=== PATIENT | male | born 1995 | race Caucasian/White ===

== ENCOUNTER 2023-10-18 18:30 | Emergency (ER) | payer OTHER, SELFPAY ==
[2023-10-18 18:31] VITALS: BP 145/92; PULSE 72; RESP 16; TEMP 36.6; O2SAT 97; BMI 27.9
[2023-10-18] MEDS: Ketorolac 15 MG/ML Vial IM (20:09)
--- NOTE | 2023-10-18 20:24 | EX.ED.GENINJ ---
HPI <JANEL Duran - Last Filed: 10/18/23 20:31> History of Present Illness Chief Complaint: Head Injury Narrative Narrative: Patient presenting today due to pain to his head, neck, and shoulders. He reports that he was wrestling with his son yesterday for fall and when his son drove his knee into the back of patient's head/neck. He reports that his son weighs about 35 pounds. He did not lose consciousness. He reports that since then, he has had intermittent headaches that feel like a band around his head and are worse to the back of his head, he also reports pain to his neck into his shoulders. He reports that he has felt intermittently nauseous but has not had any vomiting, visual changes, or dizziness. He is not on any blood thinners. PFSH <JANEL Duran - Last Filed: 10/18/23 20:31> PFSH Medical History no medical history Home Medications promethazine 25 mg tablet 25 mg PO Q6H PRN PRN Nausea ##10 07/30/14 [Rx Last Taken Unknown] Allergy/AdvReac Type Severity Reaction Status Date / Time amoxicillin [Amoxicillin] Allergy Hives Verified 07/30/14 15:31 acetaminophen [From Vicodin] AdvReac Nausea Verified 07/30/14 15:31 hydrocodone bitartrate AdvReac Nausea Verified 07/30/14 15:31 [From Vicodin] Social History Smoking Status: Never smoker ROS <JANEL Duran - Last Filed: 10/18/23 20:31> ROS ED Constitutional Constitutional ED: Denies chills or fever(s) Cardiovascular Cardiovascular: Denies chest pain Respiratory/Chest Respiratory/Chest: Denies cough or dyspnea Gastrointestinal Gastrointestinal: Denies abdominal pain, nausea or vomiting Musculoskeletal Musculoskeletal: Reports myalgias and neck pain; Denies arthralgias or back pain Integumentary Denies rash Neurologic Neurologic: Reports headache(s); Denies dizziness, paresthesias or weakness EXAM <JANEL Duran - Last Filed: 10/18/23 20:31> Physical Exam Const Vital Signs: 10/18/23 18:31 10/18/23 19:29 Temperature 97.8 F Temperature Source Temporal Pulse Rate 72 Respiratory Rate 16 Respiratory Effort Normal Respiratory Depth Normal Respiratory Pattern Normal Blood Pressure 145/92 H Blood Pressure Mean 109 Pulse Ox 97 Oxygen Delivery Method Room Air Room Air Positive well nourished, well developed and no apparent distress General Appearance ED: well developed HEENT Reports normocephalic and head/scalp atraumatic Mouth ED: Yes moist mucous membranes normal Eyes PERRL and EOMs intact bilaterally Neck full ROM and supple General: other Bilateral paracervical tenderness, no midline cervical tenderness to palpation. Left and right trapezius tenderness to palpation. Chest Wall inspection of chest normal Resp normal respiratory effort and clear to auscultation bilaterally Cardio regular rate and regular rhythm GI soft to palpation, non-tender, non-distended and no masses Back/Spine normal ROM and normal to inspection Extremity normal to inspection and full ROM Extremity Narrative: Range of motion of the bilateral shoulders. Neuro oriented x3, CN's II-XII intact bilaterally, moves all extremities, no focal motor deficits and no sensory deficits noted Sensorium / Orientation: awake and alert Psych mental status grossly normal and thought process normal Skin no rashes or lesions noted and no wounds <Dr. Aidan Godinez DO - Last Filed: 10/18/23 23:22> Physical Exam Const Vital Signs: 10/18/23 18:31 10/18/23 19:29 Temperature 97.8 F Temperature Source Temporal Pulse Rate 72 Respiratory Rate 16 Respiratory Effort Normal Respiratory Depth Normal Respiratory Pattern Normal Blood Pressure 145/92 H Blood Pressure Mean 109 Pulse Ox 97 Oxygen Delivery Method Room Air Room Air [facility] <JANEL Duran - Last Filed: 10/18/23 20:31> [facility] Narrative Medical decision making narrative: Patient presenting today due to a head/neck injury that took place last night. He reports that he was wrestling with his son when his son fell onto the back of his head/neck with his knee. There was no loss of consciousness, I do not feel that there is indication for CT scan of patient's head. He does not have any midline cervical tenderness to indicate need for imaging. He has tenderness to the paracervical muscles and bilateral trapezius muscles. Examination consistent with muscular strain of the neck/upper back and shoulders. He has been given head injury precautions. He was given Toradol here for pain and reports improvement of his symptoms on reexamination. I did offer to give him a prescription for anti-inflammatory/muscle relaxers but patient reports that he has ibuprofen at home that he can use instead. He is to follow-up with his PCP will be discharged with stable condition. He is comfortable with plan. <Dr. Aidan Godinez, DO - Last Filed: 10/18/23 23:22> [facility] Narrative Medical decision making narrative: Patient presenting today due to a head/neck injury that took place last night. He reports that he was wrestling with his son when his son fell onto the back of his head/neck with his knee. There was no loss of consciousness, I do not feel that there is indication for CT scan of patient's head. He does not have any midline cervical tenderness to indicate need for imaging. He has tenderness to the paracervical muscles and bilateral trapezius muscles. Examination consistent with muscular strain of the neck/upper back and shoulders. He has been given head injury precautions. He was given Toradol here for pain and reports improvement of his symptoms on reexamination. I did offer to give him a prescription for anti-inflammatory/muscle relaxers but patient reports that he has ibuprofen at home that he can use instead. He is to follow-up with his PCP will be discharged with stable condition. He is comfortable with plan. 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 I perform my own [id number] evaluation. I agree with the plan of work-up. Pain upper neck trapezius after 35 pounds on jumped on him yesterday evening. No pain down the arms. No focal deficit on exam. Tenderness paracervical no midline tenderness. Patient was treated with Toradol with improving symptoms. He will continue NSAIDs at home. He is reassured. All questions were strict Discharge Plan Triage Chief Complaint: Head Injury Other Complaint: Back ED Midlevel Provider: Mallika Corbett ED Provider: Aidan Godinez Dx/Rx/DC Orders Clinical Impression: Head injury, Acute strain of neck muscle Instructions: ED Head Injury (Adult), ED Neck Sprain or Strain Prescriptions: No Action promethazine 25 MG tablet 25 mg PO Q6H PRN PRN (Reason: Nausea) Qty: 10 0RF Primary Care Provider: Care Physician,No Primary Referrals: Willie Canut MD [Non-Staff] - 3-5 Days if not improving Activity Restrictions/Additional Instructions: You can take ibuprofen and Tylenol at home as needed for your pain. Follow-up with your PCP. Disposition Disposition: Home, Self Care Discharge Date/Time: 10/18/23 20:33
--- OUTSIDE RECORDS SUMMARY | 2023-10-18 20:29 | XMS RPT_ITS | CCD ---
Author Name Unknown Address [address] [place] [address] Organization [facility] Care Team Providers Care Human Resources Advisor Name Role Phone FRAN SHERMAN Attending Unavailable FRAN SHERMAN Primary Care Unavailable FRAN SHERMAN Admitting Unavailable Pepe HIGGINS, Willie Peterson Primary Care Provider [phone] Pcp, No Primary Care Provider Unavailjoseph Quiles MD, Andres Peterson Primary Care Provider Etta HIGGINS, Andres Peterson Primary Care Provider ANDRES QUILES Primary Care Unavailable GURMEET VANEGAS Attending Unavailable ANDRES QUILES Referring Unavailable ANDRES QUILES Primary Care Unavailable GURMEET VANEGAS Referring Unavailable GURMEET VANEGAS Attending Unavailable ETTA, ANDRES Peterson Primary Care Unavailable TEREZA GRIGSBY Attending Unavailable ETTA, ANDRES Peterson Primary Care Unavailable LISBETH SWENSON Attending Unavailable ANDRES QUILES Primary Care Unavailable NAYELI DAMON Attending Unavailable ANDRES QUILES Primary Care Unavailable ANDRES QUILES Primary Care Unavailable ETTA, ANDRES Peterson Primary Care Unavailable JUNE TRUJILLO Attending Unavailable ANDRES QUILES Primary Care Unavailable LISBETH SWENSON Attending Unavailable ANDRES QUILES Primary Care Unavailable LISBETH SWENSON Attending Unavailable Allergies Allergy Classification Reported Allergen(s) Allergy Type Date of Onset Reaction(s) Facility Acetaminophen / HYDROcodone (1 source) Acetaminophen / HYDROcodone Drug Allergy 06-17-2010 [facility] Work Phone: Penicillins (antibiotic) (1 source) Amoxicillin Drug Allergy 06-24-2011 Rash [facility] Work Phone: (12 sources) Acetaminophen / HYDROcodone; Translations: [HYDROCODONE-ACETA MINOPHEN] Drug Allergy 06-17-2010 GI Upset [facility] Work Phone: (12 sources) Amoxicillin; Translations: [AMOXICILLIN] Drug Allergy 06-24-2011 Rash [facility] Work Phone: Medications Current Medications Medication Drug Class(es) Dates Sig (Normalized) Sig (Original) diazePAM 5 mg oral tablet (3 sources) Benzodiazepine Start: 03-23-2023 End: 04-01-2023 diazePAM (VALIUM) 5 mg tablet Indications: anxiety , sedation Take 1 tablet by mouth on the day of surgery upon [facility]. Take second tablet 30 minutes later if needed. 2 tablet 0 03/23/2023 04/01/2023 Active Completed/Discontinued Medications Medication Drug Class(es) Dates Sig (Normalized) Sig (Original) carboxymethylcellulose sodium 5 mg/ml ophthalmic solution (4 sources) Start: 03-31-20 carboxymethylcellulose (REFRESH PLUS) 0.5 % Use 1 Drop in both eyes as needed. USE DIRECTED 1 Packet 0 03/31/2023 Active Problems Active Problems Problem Classification Problem Date Documented Date Episodic/Chronic Anxiety disorders (11 sources) Posttraumatic stress disorder; Translations: [Post-traumatic stress disorder, unspecified] Onset: 05-27-2021 05-27-2021 Chronic Contraceptive and procreative management (3 sources) Contraception status; Translations: [Encounter for sterilization] Onset: 11-30-2022 Episodic Other aftercare (1 source) Surgical follow-up; Translations: [Encounter for follow-up examination after completed treatment for conditions other than malignant neoplasm] Episodic Other upper respiratory infections (1 source) Bacterial sinusitis; Translations: [Chronic sinusitis, unspecified] 09-19-2023 Chronic Other upper respiratory infections (2 sources) Sore throat symptom; Translations: [Acute pharyngitis, unspecified] Episodic Residual codes; unclassified (2 sources) History of surgical procedure on eye proper using laser; Translations: [Other specified postprocedural states] 07-15-2023 Episodic Unclassified (3 sources) Invalid ICD10 Description; Translations: [Invalid ICD10 Description] Onset: 11-17-2020 Unclassified (1 source) vas follow up Onset: 12-28-2022 Viral infection (1 source) Viral disease; Translations: [Viral infection, unspecified] Episodic Past or Other Problems Problem Classification Problem Date Documented Da te Episodic/Chronic Blindness and vision defects (3 sources) Disorder of refraction; Translations: [Unspecified disorder of refraction] Onset: 03-11-2023 Episodic Results Test Name Value Interpretation Reference Range Facil ity Vital Signs Date Time Vital Sign Value Performing Clinician Faci lity 09-19-2023 14:48-0500 Body temperature 97 [degF] Bernardino Pendlebury MELT HELPER[employer]PHOTO INTERN Work Phone: [facility] 09-19-2023 14:48-0500 Body [facility] 86.73 [facility]N Work Phone: [facility] 09-19-2023 14:48-0500 Diastolic blood pressure 78 mm[Hg] Bernardino Pendlebury MELT HELPER.PHOTO INTERN Work Phone: [facility] 09-19-2023 14:48-0500 Heart rate 55 /min Bernardino Pendlebury MELT HELPER.PHOTO INTERN Work Phone: [facility] 09-19-2023 14:48-0500 Respiratory rate 19 /min Bernardino Pendlebury MELT HELPER.PHOTO INTERN Work Phone: [facility] 09-19-2023 14:48-0500 SaO2% (BldA) [Mass fraction] 97 % [facility].PHOTO INTERN Work Phone: [facility] 09-19-2023 14:48-0500 Systolic blood pressure 124 mm[Hg] Bernardino Pendlebury MELT HELPER.PHOTO INTERN Work Phone: [facility] 01-24-2023 12:23-0400 Body temperature 97.81 [degF] Mago Mercado PA Work Phone: [facility] 01-24-2023 12:23-0400 Body weight 87 kg Mago Mercado PA Work Phone: [facility] 01-24-2023 12:23-0400 Diastolic blood pressure 86 mm[Hg] Mago Mercado PA Work Phone: [facility] 01-24-2023 12:23-0400 Heart rate 65 /min Krislyn Aberegg PA Work Phone: [facility] 01-24-2023 12:23-0400 Respiratory rate 21 /min Krislyn Aberegg PA Work Phone: [facility] 01-24-2023 12:23-0400 SaO2% (BldA) [Mass fraction] 98 % Krislyn Aberegg PA Work Phone: [facility] 01-24-2023 12:23-0400 Systolic blood pressure 124 mm[Hg] Krislyn Aberegg PA Work Phone: [facility] 12-17-2022 09:21-0500 Body height 177.8 cm Gurmeet Vanegas MD Work Phone: [facility] 12-17-2022 09:21-0500 Body weight 79.38 kg Gurmeet Vanegas MD Work Phone: [facility] 01-20-2022 11:32-0400 Body temperature 98.1 [degF] Charisma Athy PA-C Work Phone: [facility] 01-20-2022 11:32-0400 Body weight 74.21 kg Charisma Athy PA-C Work Phone: [facility] 01-20-2022 11:32-0400 Diastolic blood pressure 82 mm[Hg] Charisma Athy PA-C Work Phone: [facility] 01-20-2022 11:32-0400 Heart rate 62 /min Charisma Athy PA-C Work Phone: [facility] 01-20-2022 11:32-0400 Respiratory rate 18 /min Charisma Athy PA-C Work Phone: [facility] 01-20-2022 11:32-0400 SaO2% (BldA) [Mass fraction] 98 % Charisma Athy PA-C Work Phone: [facility] 01-20-2022 11:32-0400 Systolic blood pressure 126 mm[Hg] Charisma Guerin PA-C Work Phone: [facility] Encounters Encounter Date Encounter Type Care Provider Facility Start: 09-19-2023 End: 09-19-2023 ambulatory ANDRES QUILES Facility:[facility] Start: 09-19-2023 End: 09-19-2023 Office outpatient visit 25 minutes Bernardino De Leon APRN.CNP Work Phone: [facility] Procedures Date Procedure Procedure Detail Performing Clinician Start: 03-31-2023 REFRACTIVE SURGERY O D (RIGHT EYE) Lisbeth Swenson MD Work Phone: Start: 03-31-2023 REFRACTIVE SURGERY O S (LEFT EYE) Lisbeth Swenson MD Work Phone: Start: 12-28-2022 H/O: vasectomy S/P vasectomy Mago ISLAS Work Phone: Start: 01-20-2022 STREP A MOLECULAR (POC) [facility] Provider Start: 05-27-2021 Adult depression screening assessment Charisma Guerin PA-C Work Phone: Plan of Treatment Date Care Activity Detail Author Start: 06-17-2023 Influenza vaccination [facility] Start: 10-17-2022 [facility] Start: 06-17-2022 Influenza vaccination [facility] Start: 05-27-2022 Adult depression scr eening assessment DEPRESSION SCREENING [facility] Start: 05-27-2022 COVID-19 VACCINE (1) COVID-19 VACCIN E (1) [facility] Immunizations Immunization Date Immunization Notes Care Provider Fa cility 10-25-2008 influenza virus vacc ine, live, attenuated, for intranasal use Willie Cantu MD Work Phone: [facility] 10-25-2008 meningococcal polysaccharide vaccine (MPSV4) Willie Cantu MD Work Phone: [facility] 10-25-2008 tetanus toxoid, redu sher diphtheria toxoid, and acellular pertussis vaccine, adsorbed Willie Cantu MD Work Phone: [facility] 10-25-2008 influenza virus vacc ine, unspecified formulation Emigdio Morales OD Work Phone: [facility] 08-26-2007 influenza virus vacc ine, live, attenuated, for intranasal use Willie Cantu MD Work Phone: [facility] Work Phone: 08-18-2006 influenza virus vacc ine, live, attenuated, for intranasal use Willie Cantu MD Work Phone: [facility] 05-09-2002 diphtheria, tetanus toxoids and acellular pertussis vaccine Willie Cantu MD Work Phone: [facility] Work Phone: 05-09-2002 measles, mumps and rubella virus vaccine Willie Cantu MD Work Phone: [facility] Work Phone: 11-09-2001 poliovirus vaccine, inactivated Willie Cantu MD Work Phone: [facility] Work Phone: 05-19-2001 varicella virus vaccine Willie Cantu MD Work Phone: [facility] Work Phone: 06-28-1999 poliovirus vaccine, inactivated Willie Cantu MD Work Phone: [facility] Work Phone: 11-21-1998 diphtheria, tetanus toxoids and acellular pertussis vaccine Willie Cantu MD Work Phone: [facility] Work Phone: 11-21-1998 haemophilus influenz ae type b vaccine, HbOC conjugate Willie Cantu MD Work Phone: [facility] Work Phone: 07-09-1998 measles, mumps and rubella virus vaccine Willie Cantu MD Work Phone: [facility] Work Phone: 01-30-1998 diphtheria, tetanus toxoids and acellular pertussis vaccine Willie Cantu MD Work Phone: [facility] Work Phone: 01-30-1998 haemophilus influenz ae type b vaccine, HbOC conjugate Willie Cantu MD Work Phone: [facility] Work Phone: 01-30-1998 hepatitis B vaccine, pediatric or pediatric/adolescent dosage Willie Cantu MD Work Phone: [facility] Work Phone: 1997 diphtheria, tetanus toxoids and acellular pertussis vaccine Willie Cantu MD Work Phone: [facility] Work Phone: 1997 haemophilus influenz ae type b vaccine, HbOC conjugate Willie Cantu MD Work Phone: [facility] Work Phone: 1997 poliovirus vaccine, inactivated Willie Cantu MD Work Phone: [facility] Work Phone: 1997 diphtheria, tetanus toxoids and acellular pertussis vaccine Willie Cantu MD Work Phone: [facility] Work Phone: 1997 haemophilus influenz ae type b vaccine, HbOC conjugate Willie Cantu MD Work Phone: [facility] Work Phone: 1997 poliovirus vaccine, inactivated Willie Cantu MD Work Phone: [facility] Work Phone: 1997 hepatitis B vaccine, pediatric or pediatric/adolescent dosage Willie Cantu MD Work Phone: [facility] Work Phone: 1997 hepatitis B vaccine, pediatric or pediatric/adolescent dosage Willie Cantu MD Work Phone: [facility] Work Phone: Payers Date Payer Category Payer Unknown MMO MMO [employer] PPO [id number] 2023-Present [phone] [address] [place] [address] PPO [id number] 2021 Private Health Insurance EHP AET NA EHP STAFF/NON STAFF / EHP [facility] [id number] 2021-2023 [address] [place] [phone] EPO [id number] 2021 Private Health Insurance [id number] 2021 Unknown [id number] 2006 Unknown [employer] [employer] PREF[employer]ED [id number] 2006-2013 Indemnity [id number] 1997 Unknown [id number] Unknown [id number] Social History Date Type Detail Facility Start: 08-28-2012 End: 11-30-2022 Tobacco smoking status NHIS Never smoker [facility] Start: 08-28-2012 End: 11-30-2022 Tobacco use and exposure Never used [facility] Work Phone: Start: 08-28-2012 [facility] Start: 1997 Sex Assigned At Not on file [facility] Start: 01-20-2022 End: 09-19-2023 Alcohol intake Ex-drinker (finding) [facility] Start: 01-10-2022 End: 01-20-2022 Exposure to SARS-CoV-2 (event) Not sure [facility] Work Phone: Start: 03-11-2023 End: 07-15-2023 History of Social function [facility] Work Phone: Start: 03-11-2023 End: 07-15-2023 Tobacco use panel [facility] Work Phone: Adult Depression Screening Assessment 0 [facility] Work Phone: Clinical Notes 12-15-2010 to 09-19-2023 Bernardino De Leon APRN.PHOTO INTERN - 09/19/2023 2:53 PM YarelybaldevEmigdio wesley OD - 07/15/2023 1:48 PM Humberto Swenson MD - 04/07/2023 12:56 PM RHEA Munoz - 03/31/2023 1:24 PM EDT Note Date & Type Note Facility 09-19-2023 Note HNO ID: [id number] Author: Bernardino De Leon APRN.PHOTO INTERN Service: ? Author Type: Nurse Practitioner Type: Progress Notes Filed: 09/19/2023 3:12 PM Note Text: Subjective HPI Nontoxic male presents urgent care chief plaint possible sinus affection. Duration of symptoms 2 weeks. Associated symptoms nasal congestion sinus pressure clogged sensation bilateral ears. Initially did have cough that did improve. Presents today for evaluation. Has OTC see medication use without success. Sick contacts work similar signs symptoms. History of sinus factions and feels similar. Denies any fever body aches chills productive cough chest pain shortness of breath pleuritic pain hemoptysis nausea vomiting abdominal pain change in bowel or bladder habits. Past medical history prescription medication use and allergies reviewed. .Patient presents with: Sinus Problem: MURRAY, congestion, bilateral ear issues x 2 weeks PAST MEDICAL HISTORY Diagnosis Date - Anxiety - Depression - PTSD (post-traumatic stress disorder) 05/27/2021 PAST SURGICAL HISTORY Procedure Laterality Date - CIRCUMCISION - COLONOSCOPY GEN ANES 07/17/2021 - LASIK SMILE Bilateral 03/31/[address] SWENSON - VASECTOMY ALLERGIES Amoxicillin and Vicodin [Hydrocodone-Acetaminophen] MEDICATIONS - carboxymethylcellulose (REFRESH PLUS) 0.5 % Use 1 Drop in both eyes as needed. USE DIRECTED - prednisoLONE acetate (PRED FORTE) 1 % ophthalmic suspension Use 1 Drop in both eyes four times daily. Use as directed (Patient not taking: Reported on 09/19/2023) - moxifloxacin (VIGAMOX) 0.5 % ophthalmic solution Use 1 Drop in both eyes four times daily. 4 times daily as directed (Patient not taking: Reported on 09/19/2023) FAMILY HISTORY Problem Relation Age of Onset - Hypertension Father - Diabetes Father Type II - Heart Father WA-Stents and Quad CABG - Lipids Father - None Mother - Heart Maternal Grandmother WA=-stents - Heart Maternal Grandfather WA - Diabetes Paternal Grandmother Type II - Hypertension Paternal Grandmother - Hypertension Paternal Grandfather - Diabetes Paternal Grandfather Type I - Heart Paternal Grandfather WA-multiple CABG x 5 - other (CHF) Paternal Grandfather - No Ocular Disease No Family History Social History Tobacco Use - Smoking status: Never - Smokeless tobacco: Never Vaping Use - Vaping Use: Some days - Substances: THC Substance Use Topics - Alcohol use: Not Currently - Drug use: Yes Types: Marijuana Comment: Medical Marijuana-edibles BP 124/78 Pulse (!) 55 Temp 36.1 ?C (97 ?F) Resp 19 Wt 86.7 kg (191 lb 3.2 oz) SpO2 97% BMI 27.43 kg/m? Review of Systems Constitutional: Negative for chills, fever and malaise/fatigue. HENT: Positive for congestion, ear pain and sinus pain. Negative for ear discharge and sore throat. Eyes: Negative for blurred vision, pain, discharge and redness. Respiratory: Negative for cough, hemoptysis, sputum production, shortness of breath, wheezing and stridor. Cardiovascular: Negative for chest pain. Gastrointestinal: Negative for abdominal pain, diarrhea, nausea and vomiting. Musculoskeletal: Negative for myalgias. Skin: Negative for itching and rash. Neurological: Negative for dizziness and headaches. Objective Physical Exam Constitutional: General: He is not in acute distress. Appearance: He is not diaphoretic. HENT: Head: Normocephalic. Jaw: No trismus, tenderness, swelling or pain on movement. Right Ear: Tympanic membrane, ear canal and external ear normal. Left Ear: Tympanic membrane, ear canal and external ear normal. Nose: Congestion present. Right Sinus: Maxillary sinus tenderness present. Left Sinus: Maxillary sinus tenderness present. Mouth/Throat: Mouth: Mucous membranes are moist. Pharynx: Oropharynx is clear. Uvula midline. No pharyngeal swelling, oropharyngeal exudate, posterior oropharyngeal erythema or uvula swelling. Eyes: Conjunctiva/sclera: Conjunctivae normal. Pupils: Pupils are equal, round, and reactive to light. Cardiovascular: Rate and Rhythm: Normal rate and regular rhythm. Heart sounds: Normal heart sounds. Pulmonary: Effort: Pulmonary effort is normal. No tachypnea, accessory muscle usage or respiratory distress. Breath sounds: Normal breath sounds. No stridor. No wheezing, rhonchi or rales. Abdominal: General: There is no distension. Palpations: Abdomen is soft. Tenderness: There is no abdominal tenderness. There is no guarding or rebound. Musculoskeletal: Cervical back: Normal range of motion and neck supple. No edema, erythema, rigidity or tenderness. No pain with movement. Normal range of motion. Lymphadenopathy: Cervical: No cervical adenopathy. Skin: General: Skin is warm and dry. Neurological: Mental Status: He is alert and oriented to person, place, and time. ASSESSMENT/PLAN: 1. Bacterial sinusitis - ICD9: 47 (more content not included)... [facility] 09-19-2023 History of Present illness Narrative Subjective HPI Nontoxic male presents urgent care chief plaint possible sinus affection. Duration of symptoms 2 weeks. Associated symptoms nasal congestion sinus pressure clogged sensation bilateral ears. Initially did have cough that did improve. Presents today for evaluation. Has OTC see medication use without success. Sick contacts work similar signs symptoms. History of sinus factions and feels similar. Denies any fever body aches chills productive cough chest pain shortness of breath pleuritic pain hemoptysis nausea vomiting abdominal pain change in bowel or bladder habits. Past medical history prescription medication use and allergies reviewed. .Patient presents with: Sinus Problem: MURRAY, congestion, bilateral ear issues x 2 weeks PAST MEDICAL HISTORY Diagnosis Date Anxiety Depression PTSD (post-traumatic stress disorder) 05/27/2021 PAST SURGICAL HISTORY Procedure Laterality Date CIRCUMCISION COLONOSCOPY GEN ANES 07/17/2021 LASIK SMILE Bilateral 03/31/[address] SWENSON VASECTOMY ALLERGIES Amoxicillin and Vicodin [Hydrocodone-Acetaminophen] MEDICATIONS carboxymethylcellulose (REFRESH PLUS) 0.5 % Use 1 Drop in both eyes as needed. USE DIRECTED prednisoLONE acetate (PRED FORTE) 1 % ophthalmic suspension Use 1 Drop in both eyes four times daily. Use as directed (Patient not taking: Reported on 09/19/2023) moxifloxacin (VIGAMOX) 0.5 % ophthalmic solution Use 1 Drop in both eyes four times daily. 4 times daily as directed (Patient not taking: Reported on 09/19/2023) FAMILY HISTORY Problem Relation Age of Onset Hypertension Father Diabetes Father Type II Heart Father WA-Stents and Quad CABG Lipids Father None Mother Heart Maternal Grandmother WA=-stents Heart Maternal Grandfather WA Diabetes Paternal Grandmother Type II Hypertension Paternal Grandmother Hypertension Paternal Grandfather Diabetes Paternal Grandfather Type I Heart Paternal Grandfather WA-multiple CABG x 5 other (CHF) Paternal Grandfather No Ocular Disease No Family History Social History Tobacco Use Smoking status: Never Smokeless tobacco: Never Vaping Use Vaping Use: Some days Substances: THC Substance Use Topics Alcohol use: Not Currently Drug use: Yes Types: Marijuana Comment: Medical Marijuana-edibles BP 124/78 Pulse (!) 55 Temp 36.1 C (97 F) Resp 19 Wt 86.7 kg (191 lb 3.2 oz) SpO2 97% BMI 27.43 kg/m Review of Systems Constitutional: Negative for chills, fever and malaise/fatigue. HENT: Positive for congestion, ear pain and sinus pain. Negative for ear discharge and sore throat. Eyes: Negative for blurred vision, pain, discharge and redness. Respiratory: Negative for cough, hemoptysis, sputum production, shortness of breath, wheezing and stridor. Cardiovascular: Negative for chest pain. Gastrointestinal: Negative for abdominal pain, diarrhea, nausea and vomiting. Musculoskeletal: Negative for myalgias. Skin: Negative for itching and rash. Neurological: Negative for dizziness and headaches. Objective Physical Exam Constitutional: General: He is not in acute distress. Appearance: He is not diaphoretic. HENT: Head: Normocephalic. Jaw: No trismus, tenderness, swelling or pain on movement. Right Ear: Tympanic membrane, ear canal and external ear normal. Left Ear: Tympanic membrane, ear canal and external ear normal. Nose: Congestion present. Right Sinus: Maxillary sinus tenderness present. Left Sinus: Maxillary sinus tenderness present. Mouth/Throat: Mouth: Mucous membranes are moist. Pharynx: Oropharynx is clear. Uvula midline. No pharyngeal swelling, oropharyngeal exudate, posterior oropharyngeal erythema or uvula swelling. Eyes: Conjunctiva/sclera: Conjunctivae normal. Pupils: Pupils are equal, round, and reactive to light. Cardiovascular: Rate and Rhythm: Normal rate and regular rhythm. Heart sounds: Normal heart sounds. Pulmonary: Effort: Pulmonary effort is normal. No tachypnea, accessory muscle usage or respiratory distress. Breath sounds: Normal breath sounds. No stridor. No wheezing, rhonchi or rales. Abdominal: General: There is no distension. Palpations: Abdomen is soft. Tenderness: There is no abdominal tenderness. There is no guarding or rebound. Musculoskeletal: Cervical back: Normal range of motion and neck supple. No edema, erythema, rigidity or tenderness. No pain with movement. Normal range of motion. Lymphadenopathy: Cervical: No cervical adenopathy. Skin: General: Skin is warm and dry. Neurological: Mental Status: He is alert and oriented to person, place, and time. ASSESSMENT/PLAN: 1. Bacterial sinusitis - ICD9: 473.9, 041.9, ICD10: J32.9, B96.89 Diagnosed with bacterial sinusitis. Placed on doxycycline. Follow-up PCP 2 to 3 days symptoms are not improving. Patient was educated on supportive therapies. Patient was instructed to immediately proceed to emergency room for any new, worsening, or symptoms lasting longer than anticipated. The patient's clinical presentation is otherwise unremarkable at this time. Based on exam and clinical finding, the patient is stable for discharge. Plan of care was discussed with patient. Patient verbalizes understanding and agrees to plan of care. This note was generated using [employer] software. It may contain errors in wording, punctuation, or spelling. Bernardino De Leon APRN.PHOTO INTERN documented in this encounter [facility] 07-15-2023 Note HNO ID: [id number] Author: Emigdio Morales OD Service: ? Author Type: Physician Type: Progress Notes Filed: 07/15/2023 1:51 PM Note Text: POm3 smile DVA OU Doing well Patient is released to obtain regular eye health examinations on a regular basis outside of the [facility] [place] [facility]. Will use [employer] [facility] 07-15-2023 History of Present illness Narrative POm3 smile DVA OU Doing well Patient is released to obtain regular eye health examinations on a regular basis outside of the [facility] Department. Will use [email or web address] digital for computer documented in this encounter [facility] 04-07-2023 Note HNO ID: [id number] Author: Lisbeth Swenson MD Service: ? Author Type: Fellow Type: Progress Notes Filed: 04/07/2023 12:57 PM Note Text: POW1 LASIK DVA OU Doing great Stop Prednisolone and antibiotic drop Artificial tears QID OU + as needed Return in 3 months, earlier if needed I have seen and examined this patient. I have confirmed and/or edited as necessary the relevant medical and ophthalmic history, review of systems, and clinical findings obtained by others. I have discussed the assessment and the management of this patient's care with the Resident, if applicable. I have also reviewed and/or edited the clinical note, and agree with the assessment and plan of care as stated above. Lisbeth Swenson MD, MSc Cornea, External Disease and Refractive Surgery Fellow [facility] 04-07-2023 History of Present illness Narrative POW1 LASIK DVA OU Doing great Stop Prednisolone and antibiotic drop Artificial tears QID OU + as needed Return in 3 months, earlier if needed I have seen and examined this patient. I have confirmed and/or edited as necessary the relevant medical and ophthalmic history, review of systems, and clinical findings obtained by others. I have discussed the assessment and the management of this patient's care with the Resident, if applicable. I have also reviewed and/or edited the clinical note, and agree with the assessment and plan of care as stated above. Lisbeth Swenson MD, MSc Cornea, External Disease and Refractive Surgery Fellow documented in this encounter [facility] 03-31-2023 Note HNO ID: [id number] Author: RHEA Winkler Service: ? Author Type: Marketing Information Manager Type: Progress Notes Filed: 03/31/2023 1:52 PM Note Text: SMILE DVA OU Surgery consent signed See procedure record BY LISBETH SWENSON MD [facility] 03-31-2023 History of Present illness Narrative SMILE DVA OU Surgery consent signed See procedure record BY LISBETH SWENSON MD documented in this encounter [facility] 03-22-2023 Note HNO ID: [id number] Author: Lisbeth Swenson MD Service: ? Author Type: Fellow Type: Progress Notes Filed: 03/22/2023 10:56 AM Note Text: Moderate myopia both eyes. Refractive stability Tomography shows normal curvature and adequate central and regional thickness both eyes. Patient is a candidate for laser refractive surgery. Discussed options, including laser in situ keratomileusis (LASIK), Photorefractive keratectomy (PRK), and small incision lenticule extraction (SMILE). Patient elects to proceed with SMILE OU. Plan: SMILE for DVA OU I have seen and examined this patient. I have confirmed and/or edited as necessary the relevant medical and ophthalmic history, review of systems, and clinical findings obtained by others. I have discussed the assessment and the management of this patient's care with the Resident, if applicable. I have also reviewed and/or edited the clinical note, and agree with the assessment and plan of care as stated above. Lisbeth Swenson MD, MSc Cornea, External Disease and Refractive Surgery Fellow [facility] 03-22-2023 History of Present illness Narrative Moderate myopia both eyes. Refractive stability Tomography shows normal curvature and adequate central and regional thickness both eyes. Patient is a candidate for laser refractive surgery. Discussed options, including laser in situ keratomileusis (LASIK), Photorefractive keratectomy (PRK), and small incision lenticule extraction (SMILE). Patient elects to proceed with SMILE OU. Plan: SMILE for DVA OU I have seen and examined this patient. I have confirmed and/or edited as necessary the relevant medical and ophthalmic history, review of systems, and clinical findings obtained by others. I have discussed the assessment and the management of this patient's care with the Resident, if applicable. I have also reviewed and/or edited the clinical note, and agree with the assessment and plan of care as stated above. Lisbeth Swenson MD, MSc Cornea, External Disease and Refractive Surgery Fellow documented in this encounter [facility] 03-11-2023 Note HNO ID: [id number] Author: Nayeli Damon OD Service: ? Author Type: CARE SPECIALIST Type: Progress Notes Filed: 03/11/2023 9:05 AM Note Text: 1. Myopia, bilateral Finalized spec rx Patient has deferred dilation. The potential benefits as well as the risks of refusing the dilated fundus examination have been explained to the patient. Despite my recommendation, patient has refused consent to the dilation of their own free will and thus releases the [facility] and Nayeli Damon OD from any future responsibility due to their own non-compliance. Follow-up for LASIK consult in 1 week as scheduled Nayeli Damon OD March 11, 2023 9:04 AM [facility] 01-24-2023 Note HNO ID: [id number] Author: JANEL Nash Service: ? Author Type: Physician Paper Wrapping Machine Operator Type: Progress Notes Filed: 01/24/2023 12:32 PM Note Text: This note was created using AdRocketriter. Subjective Mary Donald is a 27 year old male. HPI 27-year-old male presents for vomiting, body aches, fatigue for the past few days. Patient states that he feels like he has a stomach flu. He has been vomiting for the past few days. He has body aches, fatigue and headache. No diarrhea. He does report some cramping after eating or drinking anything. He has vomited once today. Still able to keep down some fluids. He denies any sore throat, cough or URI symptoms. His work wanted him to come to be evaluated today. PAST MEDICAL HISTORY Diagnosis Date Anxiety Depression PTSD (post-traumatic stress disorder) 05/27/2021 PAST SURGICAL HISTORY Procedure Laterality Date CIRCUMCISION COLONOSCOPY GEN ANES 07/17/2021 VASECTOMY ALLERGIES Amoxicillin and Vicodin [Hydrocodone-Acetaminophen] MEDICATIONS No prescriptions on file. FAMILY HISTORY Problem Relation Age of Onset None Mother Hypertension Father Diabetes Father Type II Heart Father WA-Stents and Quad CABG Lipids Father Heart Maternal Grandmother WA=-stents Heart Maternal Grandfather WA Diabetes Paternal Grandmother Type II Hypertension Paternal Grandmother Hypertension Paternal Grandfather Diabetes Paternal Grandfather Type I Heart Paternal Grandfather WA-multiple CABG x 5 other (CHF) Paternal Grandfather Social History Tobacco Use Smoking status: Never Smokeless tobacco: Never Vaping Use Vaping Use: Some days Substances: THC Substance Use Topics Alcohol use: Not Currently Drug use: Yes Types: Marijuana Comment: Medical Marijuana-edibles Review of Systems Constitutional: Positive for fatigue. Negative for chills and fever. HENT: Negative for congestion and sore throat. Respiratory: Negative for cough and shortness of breath. Gastrointestinal: Positive for vomiting. Negative for diarrhea. Neurological: Positive for headaches. Objective BP 124/86 Pulse 65 Temp 36.6 ?C (97.8 ?F) Resp 21 Wt 87 kg (191 lb 12.8 oz) SpO2 98% BMI 27.52 kg/m? Physical Exam Vitals and nursing note reviewed. Constitutional: General: He is not in acute distress. Appearance: Normal appearance. He is not toxic-appearing. HENT: Nose: Nose normal. Mouth/Throat: Mouth: Mucous membranes are moist. Eyes: Conjunctiva/sclera: Conjunctivae normal. Cardiovascular: Rate and Rhythm: Normal rate and regular rhythm. Pulmonary: Effort: Pulmonary effort is normal. Breath sounds: Normal breath sounds. Abdominal: General: Abdomen is flat. Palpations: Abdomen is soft. Tenderness: There is no abdominal tenderness. Skin: General: Skin is warm and dry. Neurological: Mental Status: He is alert. Assessment and Plan ASSESSMENT/PLAN: 1. Viral illness - ICD9: 079.99, ICD10: B34.9 -Suspect viral gastroenteritis. -Still able to drink fluids. Only 1 episode of vomiting today -Discussed bland diet, fluids, rest. - Discussed viral etiology and rationale for treatment. - Symptomatic treatment with prn analgesia - Supportive care with fluids and rest -Declines COVID swab Diagnosis and treatment plan were discussed and questions were answered to the patient's satisfaction. Pt acknowledged understanding of concepts and follow up plan. Specific signs and symptoms that would indicate the need for higher level of care were discussed in detail warranting prompt ER evaluation. JANEL Nash [facility] 01-24-2023 History of Present illness Narrative This note was created using DGSEter. Subjective Mary Donald is a 27 year old male. HPI 27-year-old male presents for vomiting, body aches, fatigue for the past few days. Patient states that he feels like he has a stomach flu. He has been vomiting for the past few days. He has body aches, fatigue and headache. No diarrhea. He does report some cramping after eating or drinking anything. He has vomited once today. Still able to keep down some fluids. He denies any sore throat, cough or URI symptoms. His work wanted him to come to be evaluated today. PAST MEDICAL HISTORY Diagnosis Date Anxiety Depression PTSD (post-traumatic stress disorder) 05/27/2021 PAST SURGICAL HISTORY Procedure Laterality Date CIRCUMCISION COLONOSCOPY GEN ANES 07/17/2021 VASECTOMY ALLERGIES Amoxicillin and Vicodin [Hydrocodone-Acetaminophen] MEDICATIONS No prescriptions on file. FAMILY HISTORY Problem Relation Age of Onset None Mother Hypertension Father Diabetes Father Type II Heart Father WA-Stents and Quad CABG Lipids Father Heart Maternal Grandmother WA=-stents Heart Maternal Grandfather WA Diabetes Paternal Grandmother Type II Hypertension Paternal Grandmother Hypertension Paternal Grandfather Diabetes Paternal Grandfather Type I Heart Paternal Grandfather WA-multiple CABG x 5 other (CHF) Paternal Grandfather Social History Tobacco Use Smoking status: Never Smokeless tobacco: Never Vaping Use Vaping Use: Some days Substances: THC Substance Use Topics Alcohol use: Not Currently Drug use: Yes Types: Marijuana Comment: Medical Marijuana-edibles Review of Systems Constitutional: Positive for fatigue. Negative for chills and fever. HENT: Negative for congestion and sore throat. Respiratory: Negative for cough and shortness of breath. Gastrointestinal: Positive for vomiting. Negative for diarrhea. Neurological: Positive for headaches. Objective BP 124/86 Pulse 65 Temp 36.6 C (97.8 F) Resp 21 Wt 87 kg (191 lb 12.8 oz) SpO2 98% BMI 27.52 kg/m Physical Exam Vitals and nursing note reviewed. Constitutional: General: He is not in acute distress. Appearance: Normal appearance. He is not toxic-appearing. HENT: Nose: Nose normal. Mouth/Throat: Mouth: Mucous membranes are moist. Eyes: Conjunctiva/sclera: Conjunctivae normal. Cardiovascular: Rate and Rhythm: Normal rate and regular rhythm. Pulmonary: Effort: Pulmonary effort is normal. Breath sounds: Normal breath sounds. Abdominal: General: Abdomen is flat. Palpations: Abdomen is soft. Tenderness: There is no abdominal tenderness. Skin: General: Skin is warm and dry. Neurological: Mental Status: He is alert. Assessment and Plan ASSESSMENT/PLAN: 1. Viral illness - ICD9: 079.99, ICD10: B34.9 -Suspect viral gastroenteritis. -Still able to drink fluids. Only 1 episode of vomiting today -Discussed bland diet, fluids, rest. - Discussed viral etiology and rationale for treatment. - Symptomatic treatment with prn analgesia - Supportive care with fluids and rest -Declines COVID swab Diagnosis and treatment plan were discussed and questions were answered to the patient's satisfaction. Pt acknowledged understanding of concepts and follow up plan. Specific signs and symptoms that would indicate the need for higher level of care were discussed in detail warranting prompt ER evaluation. JANEL Nash documented in this encounter [facility] 01-24-2023 Instructions JANEL Nash - 01/24/2023 12:28 PM EDT BRAT DIET (may eat any of the following as tolerated) Bananas Applesauce [place] Saltine Crackers Animal Crackers Pretzels Oatmeal Unsweetened Dry Cereal (Rice Krispies, Cheerios) Plain Baked or Boiled Potato Plain White Rice Plain Noodles All clear liquid listed below CLEAR LIQUID DIET hour) Broth Jello Popsicles Pedialyte Gatorade NO Milk NO Dairy Products documented in this encounter [facility] 12-28-2022 Note HNO ID: [id number] Author: Tereza Grigsby APRN.PHOTO INTERN Service: ? Author Type: Nurse Practitioner Type: Progress Notes Filed: 12/28/2022 11:38 AM Note Text: ESTABLISHED PATIENT OFFICE VISIT HISTORY OF PRESENT ILLNESS Mary Donald is a 27 year old male s/p vasectomy who presents today for vas follow up. Patient is doing well. Incisions are healing well. He reports a stitch on the left incision fell out and there is a tiny opening. No drainage, redness or sign of infection noted on exam. No fever or chills. Advised to keep incisions clean and dry until fully healed and to return to office with any concerns of infection. Patient verbally understands. Patient given information to schedule 10 week specimen check. LAB RESULTS Creatinine Date Value Ref Range Status 06/25/2021 0.87 0.73 - 1.22 mg/dL Final No results found for: PSA Color (no units) Date Value 01/16/2004 Yellow Clarity (no units) Date Value 01/16/2004 Clear Glucose, Urine (mg/dL) Date Value 07/28/2011 neg Bilirubin, Urine (no units) Date Value 07/28/2011 neg Ketones, Urine (no units) Date Value 07/28/2011 neg Specific Kelly, Ur (no units) Date Value 07/28/2011 1.015 Hemoglobin/Blood,Ur (no units) Date Value 07/28/2011 neg pH, Urine (no units) Date Value 07/28/2011 7.5 Protein, Urine (mg/dL) Date Value 07/28/2011 trace Urobilinogen (no units) Date Value 01/16/2004 Normal Nitrites (no units) Date Value 07/28/2011 neg Leukest (no units) Date Value 01/16/2004 Negative MEDICATIONS: No prescriptions on file. REVIEW OF SYSTEMS CONSTITUTIONAL: Patient reports no recent fever or weight loss CARDIOVASCULAR: No chest pain, palpitations or ankle edema. RESPIRATORY: No wheezing, frequent cough or shortness of breath GENITOURINARY: See HPI HISTORIES PAST MEDICAL HISTORY Diagnosis Date Anxiety Depression PTSD (post-traumatic stress disorder) 05/27/2021 FAMILY HISTORY Problem Relation Age of Onset None Mother Hypertension Father Diabetes Father Type II Heart Father WA-Stents and Quad CABG Lipids Father Heart Maternal Grandmother WA=-stents Heart Maternal Grandfather WA Diabetes Paternal Grandmother Type II Hypertension Paternal Grandmother Hypertension Paternal Grandfather Diabetes Paternal Grandfather Type I Heart Paternal Grandfather WA-multiple CABG x 5 other (CHF) Paternal Grandfather PAST SURGICAL HISTORY Procedure Laterality Date CIRCUMCISION COLONOSCOPY GEN ANES 07/17/2021 VASECTOMY SOCIAL HISTORY Social History Tobacco Use Smoking status: Never Smokeless tobacco: Never Vaping Use Vaping Use: Some days Substances: THC Substance Use Topics Alcohol use: Not Currently Drug use: Yes Types: Marijuana Comment: Medical Marijuana-edibles PHYSICAL EXAMINATION General appearance: Well appearing, alert, in no acute distress, well-hydrated, well nourished.. BACK: no pain to palpation over spine or costovertebral angles. MUSCULOSKELETAL: Negative for joint pain or swelling. RESPIRATORY: Normal respiratory effort. SKIN: Normal color, no rash, no lesions. ASSESSMENT/PLAN: 1. S/P vasectomy - ICD9: V26.52, ICD10: Z98.52 - Schedule 10 week specimen check Tereza Grigsby APRN.[facility] 12-17-2022 Note HNO ID: [id number] Author: Gurmeet Vanegas MD Service: ? Author Type: Physician Type: Procedures Filed: 12/17/2022 10:08 AM Note Text: NAME: Mray Donald UNIVERSAL PROTOCOL / SAFETY CHECKLIST Procedure to be Performed: as stated below Sign In: A Moment of CARE was completed. Personnel directly involved with the procedure wore the appropriate Personal Protective Equipment. Patient/Surrogate Stated/Verified: Patient name, Date of , Relevant allergies, and the intended procedure. Time Out Communication: Intended patient and procedure match the source documents.Consent documented and matches the intended procedure. Relevant labs, photos, and/or imaging studies have been reviewed when applicable. Medications required for procedure verified when applicable. Fire risk assessed and interventions discussed. Sign Out: All specimen containers correctly labeled when applicable (as stated below) - none. No instruments, equipment or retained foreign bodies applicable. Post-procedure follow-up management communicated and Plan of Care Visit completed when applicable. Surgeon(s)/Proceduralist(s) and Paper Wrapping Machine Operator(s): Gurmeet Vanegas MD Procedure(s): Bilateral no-scalpel vasectomy Anesthesia: 1% lidocaine, local Estimated Blood Loss: 0 ml Specimens: None Implantable Devices: None Drains: None Complications: None immediate Accidental Punctures and Lacerations: None Pre-Op/Pre-Procedure Diagnosis: (Z30.2) Encounter for vasectomy (primary encounter diagnosis) Post-Op/Post-Procedure Diagnosis: Same as above Operative Indications: Mary Donald is a 27 year old male who presents for surgery. Informed consent, which had been previously obtained, was confirmed to be current. Findings: Bilateral vasa deferentia palpable Procedure Narrative: The patient took a Valium prior to arrival. A prophylactic antibiotic was administered today. The patient was positioned on the exam table in the supine position. The genitalia were shaves, prepped and draped in the usual sterile fashion. A timeout was performed, wherein the patient, procedure, and laterality were confirmed. The left vas deferens was palpated using the 3-finger technique and brought to the level of the skin. The skin overlying the vas deferens was anesthetized with 1% lidocaine. Through a small skin puncture made with a needle-tip forceps, the vas deferens and perivasal tissue were secured with a ring forceps. The vasal sheath was incised, and the vas deferens was isolated and dissected out circumferentially. The vasal segment was excised between 3-0 ties on the testis and abdominal sides. The vasal lumens from both sides were cauterized. This procedure was repeated on the right side. The skin was closed with 4-0 Monocryl suture. The patient tolerated the procedure well. He was discharged home in satisfactory condition. Home-going instructions were reviewed and provided to the patient. A script for Tramadol was sent to the patient's pharmacy. Follow Up: ~1 week with RASHI for a wound check and to set up a semen analysis in ~10 weeks (after ~20 ejaculations). The patient was instructed to use an alternate form of control until the semen analysis confirms the absence of viable sperm. SIGNATURE: Gurmeet Vanegas MD PATIENT NAME: Mary Donald DATE: December 17, 2022 TIME: 10:05 AM PAGER/CONTACT #: [phone] [facility] 12-17-2022 Procedure note NAME: Mary Donald UNIVERSAL PROTOCOL / SAFETY CHECKLIST Procedure to be Performed: as stated below Sign In: A Moment of CARE was completed. Personnel directly involved with the procedure wore the appropriate Personal Protective Equipment. Patient/Surrogate Stated/Verified: Patient name, Date of , Relevant allergies, and the intended procedure. Time Out Communication: Intended patient and procedure match the source documents.Consent documented and matches the intended procedure. Relevant labs, photos, and/or imaging studies have been reviewed when applicable. Medications required for procedure verified when applicable. Fire risk assessed and interventions discussed. Sign Out: All specimen containers correctly labeled when applicable (as stated below) - none. No instruments, equipment or retained foreign bodies applicable. Post-procedure follow-up management communicated and Plan of Care Visit completed when applicable. Surgeon(s)/Proceduralist(s) and Paper Wrapping Machine Operator(s): Gurmeet Vanegas MD Procedure(s): Bilateral no-scalpel vasectomy Anesthesia: 1% lidocaine, local Estimated Blood Loss: 0 ml Specimens: None Implantable Devices: None Drains: None Complications: None immediate Accidental Punctures and Lacerations: None Pre-Op/Pre-Procedure Diagnosis: (Z30.2) Encounter for vasectomy (primary encounter diagnosis) Post-Op/Post-Procedure Diagnosis: Same as above Operative Indications: Mary Donald is a 27 year old male who presents for surgery. Informed consent, which had been previously obtained, was confirmed to be current. Findings: Bilateral vasa deferentia palpable Procedure Narrative: The patient took a Valium prior to arrival. A prophylactic antibiotic was administered today. The patient was positioned on the exam table in the supine position. The genitalia were shaves, prepped and draped in the usual sterile fashion. A timeout was performed, wherein the patient, procedure, and laterality were confirmed. The left vas deferens was palpated using the 3-finger technique and brought to the level of the skin. The skin overlying the vas deferens was anesthetized with 1% lidocaine. Through a small skin puncture made with a needle-tip forceps, the vas deferens and perivasal tissue were secured with a ring forceps. The vasal sheath was incised, and the vas deferens was isolated and dissected out circumferentially. The vasal segment was excised between 3-0 ties on the testis and abdominal sides. The vasal lumens from both sides were cauterized. This procedure was repeated on the right side. The skin was closed with 4-0 Monocryl suture. The patient tolerated the procedure well. He was discharged home in satisfactory condition. Home-going instructions were reviewed and provided to the patient. A script for Tramadol was sent to the patient's pharmacy. Follow Up: ~1 week with RASHI for a wound check and to set up a semen analysis in ~10 weeks (after ~20 ejaculations). The patient was instructed to use an alternate form of control until the semen analysis confirms the absence of viable sperm. SIGNATURE: Gurmeet Vanegas MD PATIENT NAME: Mary Donald DATE: December 17, 2022 TIME: 10:05 AM PAGER/CONTACT #: [phone] documented in this encounter [facility] 12-14-2022 Miscellaneous Notes Vasectomy is scheduled 12/17/22. Vasectomy requires 30-minute slot, currently in 15-minute slot. Please adjust the schedule accordingly. Thanks documented in this encounter [facility] 11-30-2022 Note HNO ID: [id number] Author: Gurmeet Vanegas MD Service: ? Author Type: Physician Type: Progress Notes Filed: 11/30/2022 1:21 PM Note Text: [facility] NEW PATIENT HISTORY AND PHYSICAL EXAMINATION PATIENT: Mary Donald (27 year old) PCP: Andres Quiles MD --- ------- SUMMARY: Interested in vasectomy ASSESSMENT: 1. Vasectomy evaluation - ICD9: V25.09, ICD10: Z30.09 PLAN: The risks, benefits, and alternatives of vasectomy were discussed. The patient was instructed that vasectomy is intended to be a permanent form of contraception, and that if fertility is desired after vasectomy, there are treatments available, but they are not always successful and may be expensive. The patient was counseled that vasectomy does not produce immediate sterility and that another form of control is required until a semen analysis is performed that confirms the absence of living sperm. The patient was informed that the risk of after vasectomy is approximately 1 in 2,000. The patient was counseled on the risks of vasectomy, including but not limited to, bleeding (1-2%), infection (1-2%), chronic scrotal pain (1-2%), need for repeat vasectomy (1%), and testicular loss. The patient understands and wishes to proceed. Schedule vasectomy. All questions were answered. ([facility]) FOLLOW UP: Return for vasectomy. --- ------- CHIEF COMPLAINT: Patient presents with: vas consult HISTORY OF PRESENT ILLNESS: He and his significant other, Cali, have been partnered for 9 years. He has 2 children, and he has decided that he does not want to have any more children. He has been considering vasectomy for 12+ months. ([facility]) REVIEW OF SYSTEMS: Constitutional: fevers or chills - denies Cardiovascular: new or worsening chest pain - denies Respiratory: new or worsening shortness of breath - denies Gastrointestinal: constipation - denies Hematologic/Lymphatic: easy bleeding or bruising - denies ALLERGIES: ALLERGIES Allergen Reactions Amoxicillin Rash Vicodin [Hydrocodon* GI Upset upset stomach and headache MEDICATIONS: diazePAM (VALIUM) 10 mg tablet Take one tablet by mouth 1 hour prior to your procedure. PAST HISTORY: PAST MEDICAL HISTORY Diagnosis Date Anxiety Depression PTSD (post-traumatic stress disorder) 05/27/2021 PAST SURGICAL HISTORY Procedure Laterality Date CIRCUMCISION COLONOSCOPY GEN ANES 07/17/2021 FAMILY HISTORY Problem Relation Age of Onset None Mother Hypertension Father Diabetes Father Type II Heart Father WA-Stents and Quad CABG Lipids Father Heart Maternal Grandmother WA=-stents Heart Maternal Grandfather WA Diabetes Paternal Grandmother Type II Hypertension Paternal Grandmother Hypertension Paternal Grandfather Diabetes Paternal Grandfather Type I Heart Paternal Grandfather WA-multiple CABG x 5 other (CHF) Paternal Grandfather Social History Tobacco Use Smoking status: Never Smokeless tobacco: Never Vaping Use Vaping Use: Some days Substances: THC Substance Use Topics Alcohol use: Not Currently Drug use: Yes Types: Marijuana Comment: Medical Marijuana-edibles PHYSICAL EXAMINATION: BP 114/74 Ht 178 cm (5' 10.08 ) Wt 73.9 kg (163 lb) BMI 23.33 kg/m? Genitourinary: (1) Rectal: . (2) CVA: . (3) Genital: . (4) Gonads: Bilateral testes present, nontender, without masses. Bilateral vasa deferentia easily palpable. (5) Other: . Constitutional: In no acute distress. Well appearing. Respiratory: Normal respiratory effort without use of accessory muscles. Musculoskeletal: Normal gait and station Cardiovascular: Gastrointestinal: MEDICAL DECISION MAKING PROBLEM(S): DATA: Category 1 Review of test result(s): Ordering of test(s): Review of prior external note: Independent historian: Category 2 Independent interpretation of test: Category 3 Discussion of management or test interpretation: RISK: I have reviewed the problem list, family history, and social history documented by my ancillary staff. Gurmeet Vanegas MD Staff Urologist [facility] 01-20-2022 History of Present illness Narrative This note was created using [employer]Rocket[employer]. Subjective Mary Donald is a 26 year old male. HPI Patient presents with sore throat, congestion and headache over the past 4 days. No significant cough. He states the sore throat got significantly worse today. He went to make sure he did not have strep. No fever. His son is sick with URI type symptoms. He has not had Covid previously. No chest pain or shortness of breath. No change in smell or taste. Review of Systems Constitutional: Negative. HENT: Positive for congestion, postnasal drip and sore throat. Negative for ear pain. Respiratory: Negative for cough and shortness of breath. Cardiovascular: Negative. Gastrointestinal: Negative. Genitourinary: Negative. Musculoskeletal: Negative. All other systems reviewed and are negative. PAST MEDICAL HISTORY Diagnosis Date Anxiety Depression PTSD (post-traumatic stress disorder) 05/27/2021 Current Outpatient Medications Medication Sig Dispense Refill predniSONE (DELTASONE) 20 mg tablet Take 2 tablets by mouth once daily for 5 days. 10 tablet 0 No current facility-administered medications for this visit. PAST SURGICAL HISTORY Procedure Laterality Date CIRCUMCISION COLONOSCOPY GEN ANES 07/17/2021 FAMILY HISTORY Problem Relation Age of Onset None Mother Hypertension Father Diabetes Father Type II Heart Father WA-Stents and Quad CABG Lipids Father Heart Maternal Grandmother WA=-stents Heart Maternal Grandfather WA Diabetes Paternal Grandmother Type II Hypertension Paternal Grandmother Hypertension Paternal Grandfather Diabetes Paternal Grandfather Type I Heart Paternal Grandfather WA-multiple CABG x 5 other (CHF) Paternal Grandfather Social History Tobacco Use Smoking status: Never Smoker Smokeless tobacco: Never Used Vaping Use Vaping Use: Some days Substances: THC Substance Use Topics Alcohol use: Not Currently Drug use: Yes Types: Marijuana Comment: Medical Marijuana-edibles Objective BP 126/82 Pulse 62 Temp 36.7 C (98.1 F) Resp 18 Wt 74.2 kg (163 lb 9.6 oz) SpO2 98% BMI 23.47 kg/m Physical Exam Vitals reviewed. Constitutional: Appearance: Normal appearance. HENT: Head: Normocephalic and atraumatic. Right Ear: Tympanic membrane, ear canal and external ear normal. Left Ear: Tympanic membrane, ear canal and external ear normal. Nose: Congestion present. Mouth/Throat: Mouth: Mucous membranes are moist. Pharynx: Pharyngeal swelling and posterior oropharyngeal erythema present. No oropharyngeal exudate or uvula swelling. Tonsils: No tonsillar exudate or tonsillar abscesses. 1+ on the right. 1+ on the left. Cardiovascular: Rate and Rhythm: Normal rate and regular rhythm. Heart sounds: Normal heart sounds. Pulmonary: Effort: Pulmonary effort is normal. Breath sounds: Normal breath sounds. Musculoskeletal: Cervical back: Neck supple. Lymphadenopathy: Cervical: No cervical adenopathy. Skin: General: Skin is warm and dry. Neurological: General: No focal deficit present. Mental Status: He is alert and oriented to person, place, and time. Assessment and Plan ASSESSMENT/PLAN: 1. Sore throat - ICD9: 462, ICD10: J02.9 (primary diagnosis) - suspect viral - Alere Strep Test negative, no culture pending - 2019 CORONAVIRUS - ALERE STREP A TEST (AG) 2. Viral URI - ICD9: 465.9, ICD10: J06.9 - Discussed viral etiology and rationale for treatment. - Symptomatic treatment with prn analgesia - Supportive care with fluids and rest Charisma Guerin PA-C documented in this encounter [facility] 01-20-2022 Instructions Charisma Guerin PA-C - 01/20/2022 11:57 AM EDT cepacol lozenges otc Continue cough and colds meds as needed. documented in this encounter [facility] 11-28-2012 Miscellaneous Notes Caty from Dr. Stokes's office at [facility], called and identified patient by name and birthdate. PATIENT SYMPTOMS/CONCERNS FOR PROVIDER: States a referral needs entered in order for patients insurance to cover appt's. Patient is seeing Dr. Stokes, psycholigist, for ADD. Had appt yesterday and next appt is scheduled 12/11/12. MEASURES TAKEN TO ALLEVIATE SYMPTOMS: N/A ADVICE/DISPOSITION: referral to Dr. Stokes's office Joan Crespo LPN. in PEDIATRICS documented in this encounter [facility] documented as of this encounter (statuses as of 02/11/2021) [facility] History of Past illness Narrative* Problem Noted Date Resolved Date Foreign body of face, superficial 12/15/2010 02/23/2012 documented as of this encounter (statuses as of 01/20/2022) [facility] History of Past illness Narrative* Problem Noted Date Resolved Date Foreign body of face, superficial 12/15/2010 02/23/2012 documented as of this encounter (statuses as of 12/15/2022) [facility] History of Past illness Narrative* Problem Noted Date Resolved Date Foreign body of face, superficial 12/15/2010 02/23/2012 documented as of this encounter (statuses as of 12/17/2022) [address] History of Past illness Narrative* Problem Noted Date Resolved Date Foreign body of face, superficial 12/15/2010 02/23/2012 documented as of this encounter (statuses as of 01/24/2023) [address] History of Past illness Narrative* Problem Noted Date Resolved Date Foreign body of face, superficial 12/15/2010 02/23/2012 documented as of this encounter (statuses as of 03/22/2023) [address] History of Past illness Narrative* Problem Noted Date Resolved Date Foreign body of face, superficial 12/15/2010 02/23/2012 documented as of this encounter (statuses as of 03/23/2023) [address] History of Past illness Narrative* Problem Noted Date Resolved Date Foreign body of face, superficial 12/15/2010 02/23/2012 documented as of this encounter (statuses as of 03/31/2023) [address] History of Past illness Narrative* Problem Noted Date Resolved Date Foreign body of face, superficial 12/15/2010 02/23/2012 documented as of this encounter (statuses as of 04/07/2023) [place] [address]-01-2011 History of Past illness Narrative* Problem Noted Date Diagnosed Date Resolved Date Foreign body of face, superficial 12/15/2010 02/23/2012 documented as of this encounter (statuses as of 07/16/2023) [address] History of Past illness Narrative* Problem Noted Date Diagnosed Date Resolved Date Foreign body of face, superficial 12/15/2010 02/23/2012 documented as of this encounter (statuses as of 09/20/2023) [facility] Diagnosis Sore throat- Primary Acute pharyngitis Viral URI Acute upper respiratory infections of unspecified site [facility] Diagnosis Encounter for vasectomy- Primary Sterilization [facility] Diagnosis Viral illness- Primary Unspecified viral infection, in conditions classified elsewhere and of unspecified site [facility] Diagnosis Refractive error- Primary Unspecified disorder of refraction and accommodation [facility] Diagnosis Pre-operative anxiety- Primary documented in this encounter [facility] note* Diagnosis Myopic astigmatism of both eyes documented in this encounter [facility] note* Diagnosis Follow-up examination after eye surgery- Primary Follow-up examination, following other surgery documented in this encounter [facility] note* Diagnosis S/P small incision lenticule extraction (SMILE) using laser- Primary History of laser refractive surgery Other states following surgery of eye and adnexa documented in this encounter [facility] note* Diagnosis Bacterial sinusitis- Primary Unspecified sinusitis (chronic) documented in this encounter [facility] Summary Purpose Family History No Family History Records FoundNo Family History Records FoundNo Family History Records FoundNo Family History Records Found Advance Directives No Advanced Directives Records FoundDocuments on File Type Date Recorded 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 anation Advance Directive(s) 07/17/2021 10:57 AM Health Concerns Infection Onset Date Last Indicated Resolved Time COVID-19 Rule-Out 01/20/2022 01/20/2022 Medications Administered Section Inactive Administered Medications - up to 3 most recent administrations Medication Order MAR Action Action Date Dose Rate Site sulfamethoxazole-trimethoprim 800-160 mg 1 tablet (BACTRIM DS,SEPTRA DS) 1 tablet, ORAL, ONCE (UP TO 30 DAYS AMB), 1 dose, On Tue12/17/22 at 0000, Prior to HOPS procedure, Please document the antimicrobial indication: Prophylaxis Given 12/17/2022 9:35 AM EST 1 tablet Additional Source Comments (unrecognized sect ion and content) No Status Records FoundNo Status Records FoundNo Status Records FoundNo Status Records Found INFORMATION SOURCE (unrecogn ized section and content) DATE CREATED AUTHOR AUTHOR[facility]S ORGANIZ ATION [facility] DATE CREATED AUTHOR AUTHOR'S ORGANIZ ATION 01/19/2023 [facility] DATE CREATED AUTHOR AUTHOR'S ORGANIZ ATION 09/21/2023 [facility] Source Comments (unrecognize d section and content) In the event this informatio n is protected by the Federal Confidentiality of Alcohol and Drug Abuse Patient Records regulations: The Federal rules restrict any use of the information to criminally investigate or prosecute any alcohol or drug abuse patient.[facility] event this information is protected by the Federal Confidentiality of Alcohol and Drug Abuse Patient Records regulations: The Federal rules restrict any use of the information to criminally investigate or prosecute any alcohol or drug abuse patient.[facility] the event this information is protected by the Federal Confidentiality of Alcohol and Drug Abuse Patient Records regulations: The Federal rules restrict any use of the information to criminally investigate or prosecute any alcohol or drug abuse patient.[facility] the event this information is protected by the Federal Confidentiality of Alcohol and Drug Abuse Patient Records regulations: The Federal rules restrict any use of the information to criminally investigate or prosecute any alcohol or drug abuse patient.[facility] the event this information is protected by the Federal Confidentiality of Alcohol and Drug Abuse Patient Records regulations: The Federal rules restrict any use of the information to criminally investigate or prosecute any alcohol or drug abuse patient.[facility] the event this information is protected by the Federal Confidentiality of Alcohol and Drug Abuse Patient Records regulations: The Federal rules restrict any use of the information to criminally investigate or prosecute any alcohol or drug abuse patient.[facility] the event this information is protected by the Federal Confidentiality of Alcohol and Drug Abuse Patient Records regulations: The Federal rules restrict any use of the information to criminally investigate or prosecute any alcohol or drug abuse patient.[facility] the event this information is protected by the Federal Confidentiality of Alcohol and Drug Abuse Patient Records regulations: The Federal rules restrict any use of the information to criminally investigate or prosecute any alcohol or drug abuse patient.[facility] the event this information is protected by the Federal Confidentiality of Alcohol and Drug Abuse Patient Records regulations: The Federal rules restrict any use of the information to criminally investigate or prosecute any alcohol or drug abuse patient.[facility] the event this information is protected by the Federal Confidentiality of Alcohol and Drug Abuse Patient Records regulations: The Federal rules restrict any use of the information to criminally investigate or prosecute any alcohol or drug abuse patient.[facility] the event this information is protected by the Federal Confidentiality of Alcohol and Drug Abuse Patient Records regulations: The Federal rules restrict any use of the information to criminally investigate or prosecute any alcohol or drug abuse patient.[facility] Reason for Visit (unrecogniz ed section and content) Reason Comments Sore Throat congestion, MURRAY x4 da ys Reason Comments Appointment Reason Comments Vasectomy-1 Reason Comments Nausea & Vomiting Body aches, fatigue, MURRAY x 3 days Reason Comments Refractive evaluation BLURRED UCVA OU Reason Comments Laser Eye Surgery Both Eyes Reason Comments Follow Up For S/P SMILE OU Reason Comments Follow Up For S/P SMILE DVA OU X 3 MONTHS Reason Comments Sinus Problem MURRAY, congestion, bila teral ear issues x 2 weeks Care Teams (unrecognized sec tion and content) Human Resources Advisor Relationship Specialty Start Date End Date Andres Quiles MD [address], [place] [id number] PCP - General Internal Medicine 05/27/21 Human Resources Advisor Relationship Specialty Start Date End Date Andres Quiles MD [address], [place] [id number] PCP - General Internal Medicine 05/27/21 Human Resources Advisor Relationship Specialty Start Date End Date Andres Quiles MD [address], [place] [id number] PCP - General Internal Medicine 05/27/21 Human Resources Advisor Relationship Specialty Start Date End Date Andres Quiles MD [address], [place] [id number] PCP - General Internal Medicine 05/27/21 Human Resources Advisor Relationship Specialty Start Date End Date Andres Quiles MD [address], [place] [id number] PCP - General Internal Medicine 05/27/21 Human Resources Advisor Relationship Specialty Start Date End Date Andres Quiles MD [address], [place] [id number] PCP - General Internal Medicine 05/27/21 FOR RECORDS PERTAINING TO PATIENTS WHO ARE OR HAVE BEEN ENROLLED IN A CHEMICAL DEPENDENCY/SUBSTANCEABUSE PROGRAM, SOME INFORMATION MAY BE OMITTED. This clinical summary was aggregated from multiple sources. Caution should be exercised in using it in the provision of clinical care. This summary normalizes information from multiple sources, and as a consequence, information in this document may materially change the coding, format and clinical context of patient data. In addition, data may be omitted in some cases. CLINICAL DECISIONS SHOULD BE BASED ON THE PRIMARY CLINICAL RECORDS. [facility]. provides no warranty or guarantee of the accuracy or completeness of information in this document.
== END 2023-10-18 20:33 | disposition home or self-care (01) ==
PROVIDERS: Emergency Provider Emergency Medicine; Visit Provider Emergency Medicine
DX: S09.90XA Unspecified injury of head, initial encounter (principal); S16.1XXA Strain of muscle, fascia and tendon at neck level, initial encounter; X58.XXXA Exposure to other specified factors, initial encounter; Y93.72 Activity, wrestling
CPT/HCPCS: 96372; 99283

== ENCOUNTER 2024-07-04 12:34 | Emergency (ER) | payer OTHER, SELFPAY ==
[2024-07-04 12:34] VITALS: BP 134/86; PULSE 61; RESP 16; TEMP 36.6; O2SAT 99; BMI 25.8
== END 2024-07-04 15:23 | disposition left against medical advice (07) ==
LOC: ED 15:34
DX: M54.9 Dorsalgia, unspecified (principal)

== ENCOUNTER 2025-01-05 16:58 | Emergency (ER) | payer OTHER, SELFPAY ==
[2025-01-05 16:59] VITALS: BP 124/77; PULSE 73; RESP 14; TEMP 36.8; O2SAT 98; BMI 24.2
--- NOTE | 2025-01-05 17:19 | EDS_ITS ---
HPI <JANEL Bautista - Last Filed: 01/05/25 17:27> History of Present Illness Chief Complaint: Laceration Narrative Narrative: 29-year-old male presents with lacerations to his right index finger. He was painting and his son pulled the paintbrush had a parked and as he was reassembling it he cut himself on the metal edge. He cleansed the area and used Steri-Strips but thinks it needs sutures. Last tetanus unknown. PFSH <JANEL Bautista - Last Filed: 01/05/25 17:27> [facility] Medical History no medical history Home Medications ?Medication ?Instructions ?Recorded ?Last Taken ?Type promethazine 25 mg tablet 25 mg PO Q6H PRN PRN Nausea ##10 07/30/14 Unknown Rx Allergy/AdvReac Type Severity Reaction Status Date / Time amoxicillin (Amoxicillin) Allergy Hives Verified 01/05/25 16:59 hydrocodone bitartrate (From AdvReac Nausea Verified 01/05/25 16:59 Vicodin) Social History Smoking Status: Never smoker EXAM <JANEL Bautista - Last Filed: 01/05/25 17:27> Physical Exam Narrative Exam Narrative: CONST: Patient sitting in no acute distress. EYES: Normal inspection. NECK: Normal inspection. SKIN: Right index finger dorsal proximal phalanx?1 cm laceration and just distal of 0.5 cm linear laceration. No tendon involvement, no active bleeding or foreign body. Full range of motion right wrist hand and digits. Normal motor and sensory function median radial and ulnar distributions, 2+ radial pulse and brisk cap refill. NEURO: Alert and answering questions appropriately. PSYCH: Normal affect. Const Vital Signs: 01/05/25 16:59 Temperature 98.2 F Temperature Source Temporal Pulse Rate 73 Respiratory Rate 14 Blood Pressure 124/77 H Blood Pressure Mean 92 Pulse Ox 98 Oxygen Delivery Method Room Air MDM <JANEL Bautista - Last Filed: 01/05/25 17:27> MDM MDM Narrative Medical decision making narrative: 29-year-old male has 2 lacerations on the right dorsal proximal phalanx of the index finger. The proximal laceration is 1 cm the more distal laceration is 0.5 cm. He has full range of motion and no evidence of tendon injury. Neurovascularly intact. I performed wound closure with 3 sutures and 2 sutures, respectively and updated his tetanus. He was given wound care instructions and discharged in stable condition. I have personally performed a face to face assessment of the patient and have reviewed the RASHI Note. I performed a substantive portion of the visit including all aspects of the following. My dudley findings include: History is [patient presents to the emergency department with lacerations to his right index finger. Patient states that he was using a paint brush in his child had taken the brush off the handle and he was inserting the brush back into the handle when the metal band lacerated his finger. He is right-hand dominant. Unsure of his last tetanus shot. Patient denies any other complaints.] Exam is [HEENT-PERRLA, EOMI. Cranial nerves II through XII grossly intact. TMs clear. Mucous membranes moist. No adenopathy. Cardiovascular-regular rate and rhythm without murmur or ectopy Lungs-clear to auscultation, chest wall stable without crepitus or subcu emphysema Abdomen-normoactive bowel sounds, soft, nontender, no rebound or rigidity, no peritoneal signs. Extremities-intact ?4, normal range of motion, normal pulses. Right index finger-patient has a 1 cm laceration over the proximal portion of the proximal phalanx dorsum and another half centimeter laceration just distal to that on the dorsum of the proximal phalanx.] Patient has normal range of motion flexion extension of the digit. He is neurovascular intact distally. He has normal flexion extension against resistance. Medical Decison Making [patient with laceration to his right index finger. He was given a tetanus booster. Please see procedure note of JANEL for suture repair. He is advised to have sutures removed in 10 days. Patient to return if increasing pain, redness, swelling, purulent drainage, or condition should worsen anyway.] Other additions or changes: [None] <Dr. Meño Arreola, DO - Last Filed: 01/05/25 17:24> [facility] Narrative Medical decision making narrative: I have personally performed a face to face assessment of the patient and have reviewed the RASHI Note. I performed a substantive portion of the visit including all aspects of the following. My dudley findings include: History is [patient presents to the emergency department with lacerations to his right index finger. Patient states that he was using a paint brush in his child had taken the brush off the handle and he was inserting the brush back into the handle when the metal band lacerated his finger. He is right-hand dominant. Unsure of his last tetanus shot. Patient denies any other complaints.] Exam is [HEENT-PERRLA, EOMI. Cranial nerves II through XII grossly intact. TMs clear. Mucous membranes moist. No adenopathy. Cardiovascular-regular rate and rhythm without murmur or ectopy Lungs-clear to auscultation, chest wall stable without crepitus or subcu emphysema Abdomen-normoactive bowel sounds, soft, nontender, no rebound or rigidity, no peritoneal signs. Extremities-intact ?4, normal range of motion, normal pulses. Right index finger-patient has a 1 cm laceration over the proximal portion of the proximal phalanx dorsum and another half centimeter laceration just distal to that on the dorsum of the proximal phalanx.] Patient has normal range of motion flexion extension of the digit. He is neurovascular intact distally. He has normal flexion extension against resistance. Medical Decison Making [patient with laceration to his right index finger. He was given a tetanus booster. Please see procedure note of JANEL for suture repair. He is advised to have sutures removed in 10 days. Patient to return if increasing pain, redness, swelling, purulent drainage, or condition should worsen anyway.] Other additions or changes: [None] Procedures <JANEL Bautista - Last Filed: 01/05/25 17:27> Lacerations Right index finger proximal laceration: Length: 1 cm Depth: Skin Shape: Linear Prep: Sterile Conditions Laceration repair: Irrigated, Lidocaine and Local Number of Sutures/Collin: 3 Suture Information: Ethilon and 5-0 Right index finger distal laceration: Length: 0.5 cm Depth: Skin Shape: Linear Prep: Sterile Conditions Laceration repair: Irrigated and Lidocaine Number of Sutures/Collin: 2 Suture Information: Ethilon and 5-0 Discharge Plan Triage Chief Complaint: Laceration ED Midlevel Provider: Caty Hernandez ED Provider: Meño Arreola Dx/Rx/DC Orders Clinical Impression: Laceration of right index finger Instructions: ED Laceration Extremity Prescriptions: No Action promethazine 25 MG tablet 25 mg PO Q6H PRN PRN (Reason: Nausea) Qty: 10 0RF Primary Care Provider: Care Physician,No Primary Referrals: Care Physician,No Primary [Primary Care Provider] - Activity Restrictions/Additional Instructions: The stitches need removed in 1 week. Return immediately if signs of infection develop like redness, swelling, pus, increased pain or fever. Print Language: Lithuanian Disposition Disposition: Home, Self Care
[2025-01-05] MEDS: Diphth,Pertuss(Acell),Tet Vac 0.5 ML Vial IM (17:23)
== END 2025-01-05 17:38 | disposition home or self-care (01) ==
LOC: ED 17:33
PROVIDERS: Emergency Provider Emergency Medicine; Visit Provider Emergency Medicine
DX: S61.210A Laceration without foreign body of right index finger without damage to nail, initial encounter (principal); W26.8XXA Contact with other sharp object(s), not elsewhere classified, initial encounter; Y93.89 Activity, other specified
CPT/HCPCS: 12001; 90715; 99282